=== PATIENT | female | born 1970 | race Two or more races ===

== ENCOUNTER → 2016-12-08 | Outpatient (CLI) | payer OTHER | LOC: BMCIMAGING 14:09 | PROVIDERS: ATTEND Internal Medicine | DX: M99.71 Connective tissue and disc stenosis of intervertebral foramina of cervical region (principal) ==

== ENCOUNTER → 2018-06-09 | Outpatient (CLI) | payer OTHER | LOC: BMCIMAGING 11:27 | PROVIDERS: ATTEND Internal Medicine | DX: M43.12 Spondylolisthesis, cervical region (principal); M48.02 Spinal stenosis, cervical region ==